=== PATIENT | male | born 1990 | race African-American/Black ===

== ENCOUNTER 2017-07-26 03:12 | Emergency (ER) | payer SELFPAY ==
[~2017-07-26] VITALS: Ht 172.7 cm; Wt 75.0 kg
[2017-07-26 03:16] VITALS: PULSE 66; TEMP 97.8
[2017-07-26 04:56] VITALS: BP 123/81
== END 2017-07-26 04:57 | disposition home or self-care (01) ==
LOC: COL.ER 03:12
DX: S05.02XA Injury of conjunctiva and corneal abrasion without foreign body, left eye, initial encounter (principal); F17.210 Nicotine dependence, cigarettes, uncomplicated; X58.XXXA Exposure to other specified factors, initial encounter
CPT/HCPCS: J2270